=== PATIENT | male | born 1995 | race Two or more races ===

== ENCOUNTER 2024-03-22 01:54 | Emergency (ER) | payer OTHER ==
[~2024-03-22] VITALS: Ht 175.3 cm; Wt 64.0 kg
[2024-03-22] MEDS ORDERED: RINGERS SOLUTION,LACTATED 500 ML IV STA (03:22)
[2024-03-22] MEDS ORDERED: METHYLPREDNISOLONE SOD SUCC 125 MG VIAL IV STA (03:23)
[2024-03-22] MEDS ORDERED: DIPHENHYDRAMINE HCL 50 MG/ML VIAL 1ML IV STA (03:23)
[2024-03-22] MEDS ORDERED: FAMOtidine 10 MG/ML (4ML VIAL) IV PUSH STA (03:24)
[2024-03-22] MEDS ORDERED: EPINEPHRINE HCL/PF 1 MG/ML AMPUL SUBCUTANEO STA (03:24)
[2024-03-22 03:40] LABS: HEMATOCRIT 44.8 % (39.0-48.0); HEMOGLOBIN 15.5 g/dL (13-16.00); MEAN CELL VOLUME 80.8 fL (80.0-100.00); MEAN CORPUSCULAR HGB CONC 34.7 g/dl (32.0-36.0); RED BLOOD COUNT 5.54 M/uL (4.00-6.00); RED CELL DISTRIBUTION WIDTH 12.4 % (11.5-14.5)
[2024-03-22 03:53] LABS: PLATELET COUNT 117 K/uL (150-450)
[2024-03-22 04:26] LABS: CALCIUM 8.8 mg/dL (8.5-10.1); CREATININE SERUM 0.71 mg/dL (0.70-1.30); GFR 131.16; POTASSIUM 4.03 mEq/L (3.5-5.1)
== END 2024-03-22 04:57 | disposition home or self-care (01) ==
LOC: ER 01:56
DX: L50.0 Allergic urticaria (principal); Z91.013 Allergy to seafood

== ENCOUNTER 2024-05-15 02:19 | Emergency (ER) | payer OTHER ==
[~2024-05-15] VITALS: Ht 175.3 cm; Wt 59.0 kg
[2024-05-15] MEDS ORDERED: MEPERIDINE HCL/PF 50 MG/ML VIAL IM STA (02:44)
[2024-05-15] MEDS ORDERED: KETOROLAC TROMETHAMINE 30 MG VIAL IV STA (02:44)
[2024-05-15] MEDS ORDERED: PROMETHAZINE HCL 50 MG/ML AMPUL IM STA (02:45)
[2024-05-15] MEDS ORDERED: HYOSCYAMINE SULFATE 0.125 MG TAB.SUBL SL STA (02:45)
[2024-05-15] MEDS ORDERED: KETOROLAC TROMETHAMINE 30 MG VIAL ONE (02:48)
[2024-05-15] MEDS ORDERED: PROMETHAZINE HCL 50 MG/ML AMPUL IM ONE (02:49)
[2024-05-15] MEDS ORDERED: HYOSCYAMINE SULFATE 0.125 MG TAB.SUBL ONE (02:49)
[2024-05-15 03:15] LABS: HEMATOCRIT 39.2 % (39.0-48.0); HEMOGLOBIN 13.3 g/dL (13-16.00); MEAN CELL VOLUME 83.6 fL (80.0-100.00); MEAN CORPUSCULAR HEMOGLOBIN 28.3 pg (27.00-32.0); MEAN CORPUSCULAR HGB CONC 33.9 g/dl (32.0-36.0); PLATELET COUNT 325 K/uL (150-450); RED BLOOD COUNT 4.68 M/uL (4.00-6.00); RED CELL DISTRIBUTION WIDTH 13.1 % (11.5-14.5)
[2024-05-15 03:32] LABS: CALCIUM 9.3 mg/dL (8.5-10.1); CREATININE SERUM 1.04 mg/dL (0.70-1.30); GFR 83.85; POTASSIUM 3.94 mEq/L (3.5-5.1)
== END 2024-05-15 08:20 | disposition home or self-care (01) ==
LOC: ER 02:19
DX: N20.1 Calculus of ureter (principal); N23 Unspecified renal colic; Z91.013 Allergy to seafood

== ENCOUNTER → 2025-01-06 | Emergency (ER) | payer OTHER ==
[~2025-01-06] VITALS: Ht 175.3 cm; Wt 63.5 kg
== END | disposition home or self-care (01) ==
LOC: ER 06:48
DX: L03.116 Cellulitis of left lower limb (principal); Z88.0 Allergy status to penicillin; Z91.013 Allergy to seafood

== ENCOUNTER 2025-05-21 22:57 | Emergency (ER) | payer OTHER ==
[~2025-05-21] VITALS: Ht 175.3 cm; Wt 63.5 kg
[2025-05-22] MEDS ORDERED: KETOROLAC TROMETHAMINE 30 MG VIAL IV STA (01:26)
[2025-05-22] MEDS ORDERED: CLINDAMYCIN PHOSPHATE 150 MG/ML (900mg) IV STA (01:26)
[2025-05-22] MEDS ORDERED: TRAMADOL HCL 50 MG TABLET PO STA (01:29)
== END 2025-05-22 03:44 | disposition home or self-care (01) ==
LOC: ER 22:57
DX: K05.20 Aggressive periodontitis, unspecified (principal); S02.5XXA Fracture of tooth (traumatic), initial encounter for closed fracture; K02.9 Dental caries, unspecified; Z88.0 Allergy status to penicillin; Z91.013 Allergy to seafood